=== PATIENT | female | born 1960 | race African-American/Black ===

== ENCOUNTER 2020-05-03 09:40 | Emergency (ER) | payer OTHER ==
[~2020-05-03] VITALS: Ht 177.8 cm; Wt 102.1 kg
[~2020-05-03 09:40] MED LIST: BUTALB-APAP-CA1 EACH PO; IBUPROFEN200 M2 PO; NAPROSYN500 MG PO; NORCO 5-325 TA1 EACH PO; NORFLEX100 MG PO
[2020-05-03 09:42] VITALS: BP 135/90
[2020-05-03] MEDS ORDERED: NORVASC 2.5 MG2.5 M1 PO (09:53)
[2020-05-03] MEDS ORDERED: NORVASC5 MG PO (09:53)
[2020-05-03] MEDS ORDERED: IBUPROFEN 600600 M1 PO (10:18)
[2020-05-03] MEDS ORDERED: CYCLOBENZAPRINE5 MG PO (10:18)
== END 2020-05-03 11:09 | disposition home or self-care (01) ==
LOC: ER 09:40
DX: S16.1XXA Strain of muscle, fascia and tendon at neck level, initial encounter (principal); R51.9 Headache, unspecified; M54.5 Low back pain; I10 Essential (primary) hypertension; Z98.51 Tubal ligation status; V43.62XA Car passenger injured in collision with other type car in traffic accident, initial encounter; Y93.89 Activity, other specified; Y92.488 Other paved roadways as the place of occurrence of the external cause; Y99.8 Other external cause status